=== PATIENT | female | born 1940 | race Caucasian/White ===

== ENCOUNTER 2020-07-24 13:20 | Emergency (ER) | payer MEDICARE, OTHER, SELFPAY ==
[2020-07-24 13:29] VITALS: BP 130/63; PULSE 79; RESP 20; TEMP 36.4; O2SAT 100
--- NOTE | 2020-07-24 13:43 | ED.FEMALEGU ---
HPI - Female Genitourinary General Chief complaint: Urogenital-Female Stated complaint: POS UTI/pos yeast Time Seen by Provider: 07/24/20 13:35 Source: patient and RN notes reviewed Mode of arrival: ambulatory Limitations: no limitations History of Present Illness HPI Narrative: 80-year-old female who presents to [facility] with 2 weeks history of suspected bladder and yeast infection. Patient states she is having a lot of pelvic discomfort especially when her bladder is full, burning with urination and some frequency with nocturia lately 4-6 times a night. Patient denies any chills, fevers, or sweats, denies any back pain or any CVA tenderness. Patient states that she drinks a lot of water daily usually 6 bottles daily, had previous bladder infection 6 months ago. Patient states that she took 5 days of Amoxicillin and used Monistat ointment when initially symptoms started with continued burning with urination and pelvic discomfort. MD elicited complaint: dysuria, UTI and pelvic pain Pertinent past history: diabetes and other (Previous UTI 6 months ago) Onset (ago): day(s) (5 days) Location of symptoms: suprapubic and pelvis (Lower pelvis) Severity: mild Female Urogenital Radiation: Suprapubic Severity scale (1-10): 2 Quality of pain: burning and aching Consistency: progressively worsening Vaginal discharge: none Vaginal bleeding: none Urinary symptoms: Dysuria, Frequency and Foul Smelling Urine Exacerbating factors: urination Relieving factors: other (sitting in recliner and putting her feet up) Associated symptoms: denies other symptoms Treatment prior to arrival: other (Used Monistat and 5 days of amoxicillin) Sexual activity: No Patient : No Possible : postmenopausal Related Data Allergies Allergy/AdvReac Type Severity Reaction Status Date / Time No Known Allergies Allergy Unverified 01/27/20 09:02 Review of Systems Review of Systems: Narrative: CONSTITUTIONAL: Denies fever, chills, or sweats. EYES: Denies visual changes, redness, or discharge. ENT: Denies rhinorrhea, congestion, sore throat, or otalgia. CARDIOVASCULAR: Denies chest pain, palpitations, or edema. RESPIRATORY: Denies cough or dyspnea. GASTROINTESTINAL: reports pelvic pain, denies any nausea, vomiting, or diarrhea. GENITOURINARY: positive dysuria no visible hematuria.denies any vaginal drainage or any perineal itching. SKIN: Denies rash or itching. MUSCULOSKELETAL: Denies back pain, joint pain, or myalgia. NEUROLOGIC: Denies headache, numbness, or weakness. PSYCHIATRIC: Denies anxiety or depression. All systems reviewed & are unremarkable except as noted in HPI and below PMFSH Past Medical History Medical History (Updated 07/24/20 @ 15:40 by Georgia Jackman NP) Arthritis DVT (deep venous thrombosis) Hearing loss Hyperlipemia Pancreatitis Spinal stenosis Type 2 diabetes mellitus without complication, without long-term current use of insulin UTI (urinary tract infection) Surgical History Surgical History (Updated 07/24/20 @ 15:39 by Georgia Jackman NP) H/O: hysterectomy History of section History of left knee replacement History of spinal surgery lumbar Hx of cholecystectomy Family History Family History (Updated 04/29/16 @ 23:19 by DOCTOR UNKNOWN) Mother Cerebrovascular accident Sibling Family history of diabetes mellitus in first degree relative Father Family history of emphysema Social History Social History (Updated 07/24/20 @ 15:37 by Georgia Jackman NP) Smoking status: Never smoker Alcohol intake: never Substance use: never Living arrangements: with family Occupation/Education: retired Gender identity (if verbalized by the patient): Female Comments At time of signature, agree with nursing past medical, surgical, social and family history. There is no relevant family history pertinent to the presenting complaint Exam Narrative: Exam Narrative: GENERAL: Well-appearing, w
== END 2020-07-24 14:05 | disposition home or self-care (01) ==
PROVIDERS: Emergency Provider Registered Nurse; PCP Internal Medicine
DX: N39.0 Urinary tract infection, site not specified (principal); M19.90 Unspecified osteoarthritis, unspecified site; Z86.718 Personal history of other venous thrombosis and embolism; E78.5 Hyperlipidemia, unspecified; E11.9 Type 2 diabetes mellitus without complications; Z79.4 Long term (current) use of insulin; M48.00 Spinal stenosis, site unspecified
CPT/HCPCS: 81003; 87077; 87086; 87088; 87186; 99213; G0463

== ENCOUNTER 2020-08-16 08:19 | Emergency (ER) | payer MEDICARE, OTHER, SELFPAY ==
--- NOTE | 2020-08-16 08:27 | ED.GENADULT ---
HPI - General Adult General Chief complaint: Back Pain/Injury Stated complaint: rt hip pain/lower back pain Time Seen by Provider: 08/16/20 08:27 Source: patient Mode of arrival: ambulatory Limitations: no limitations History of Present Illness HPI narrative: 80-year-old female patient presents to the [facility] with complaints of a low back pain for the past 3 days. Patient denies any injury. Denies any numbness or tingling down the legs. Denies any loss of bowel or bladder control. Patient states she has had back surgery in the past and has been told that she has arthritis in the back. Patient states that the flareup got really bad yesterday when it was raining. Patient states that she tried some [id number] Motrin and Aleve which did not help much however she did take some Tylenol and use some ice and heat to the back which did help tremendously. Patient states she took another dose of Tylenol today which has helped. Related Data Allergies Allergy/AdvReac Type Severity Reaction Status Date / Time No Known Allergies Allergy Unverified 07/27/20 09:04 Review of Systems Review of Systems: Narrative: CONSTITUTIONAL: Denies fever, chills, or sweats. EYES: Denies visual changes, redness, or discharge. ENT: Denies rhinorrhea, congestion, sore throat, or otalgia. CARDIOVASCULAR: Denies chest pain, palpitations, or edema. RESPIRATORY: Denies cough or dyspnea. GASTROINTESTINAL: Denies abdominal pain, nausea, vomiting, or diarrhea. GENITOURINARY: Denies dysuria or hematuria. SKIN: Denies rash or itching. MUSCULOSKELETAL: Positive low back pain, denies joint pain, or myalgia. NEUROLOGIC: Denies headache, numbness, or weakness. PSYCHIATRIC: Denies anxiety or depression. [facility] Past Medical History Medical History Arthritis DVT (deep venous thrombosis) Hearing loss Hyperlipemia Pancreatitis Spinal stenosis Type 2 diabetes mellitus without complication, without long-term current use of insulin UTI (urinary tract infection) Surgical History Surgical History H/O: hysterectomy History of section History of left knee replacement History of spinal surgery lumbar Hx of cholecystectomy Family History Family History Mother Cerebrovascular accident Sibling Family history of diabetes mellitus in first degree relative Father Family history of emphysema Social History Social History Smoking status: Never smoker Alcohol intake: never Substance use: never Gender identity (if verbalized by the patient): Female Comments At the time of my signature I agree with nursing past medical history, surgical, social, and family history. There is no relevant family history pertinent to the presenting complaint. Exam Narrative: Exam Narrative: GENERAL: Well-appearing, well-nourished, and in no acute distress. HEAD: Normocephalic, atraumatic. EYES: PERRLA and EOMI. ENT: Nares clear, no rhinorrhea or epistaxis. Mucous membranes moist. NECK: Supple. No lymphadenopathy CHEST: Clear to auscultation. No respiratory distress. HEART: Regular rate and rhythm. No murmur heard. Normal peripheral pulses. ABDOMEN: Soft, nontender, nondistended, normal active bowel sounds. EXTREMITIES: Normal range of motion. No edema. BACK: Patient is able to ambulated without assistance. Pt is seated on the chair in no obvouis distress. No surface trauma noted. muscle tenderness to Palpation to bilateral sides of the lumbar not including the midline.. No spasm or mass. No step-offs or deformity noted to the cervical, thoracic or lumbar spine to firm Palpation at the midline. No CVA tenderness to percussion. No saddle anesthesia. ROM: able to stand erect. Normal flexion, extension, Lateral bending without complaints of pain, does complain
[2020-08-16 08:31] VITALS: BP 137/71; PULSE 83; RESP 16; TEMP 36.3; O2SAT 100
== END 2020-08-16 08:47 | disposition home or self-care (01) ==
PROVIDERS: Emergency Provider Nurse Practitioner Family; PCP Internal Medicine
DX: M54.5 Low back pain (principal); M19.90 Unspecified osteoarthritis, unspecified site; Z86.718 Personal history of other venous thrombosis and embolism; E78.5 Hyperlipidemia, unspecified; E11.9 Type 2 diabetes mellitus without complications; Z79.4 Long term (current) use of insulin; M48.00 Spinal stenosis, site unspecified; Z96.652 Presence of left artificial knee joint
CPT/HCPCS: 99211; G0463

== ENCOUNTER 2020-09-01 11:22 | Outpatient (CLI) | payer MEDICARE, OTHER, SELFPAY ==
--- NOTE | ~2020-09-01 | XR_ITS ---
XR lumbar spine 6V w bending 09/01/2020 11:45 Indication: Radiculopathy. Procedure: 7 views lumbar spine including flexion/extension Comparison: 09/08/2011 Findings: Severe lumbar spondylosis characterized by disc narrowing, prominent ventral osteophytes an d advanced multilevel facet hypertrophy. There is grade 1 spondylolisthesis at L4-5. No significant a lteration of alignment with flexion/extension. Mild dextroscoliosis. Impression: 1: Severe lumbar spondylosis. Reviewed, dictated and finalized at location B. DENCE HALL DIRECTOR Impression: 1: Severe lumbar spondylosis.
== END 2020-09-01 11:23 | disposition home or self-care (01) ==
PROVIDERS: PCP Internal Medicine; Visit Provider Internal Medicine
DX: M47.26 Other spondylosis with radiculopathy, lumbar region (principal)
CPT/HCPCS: 72114

== ENCOUNTER 2021-03-03 16:53 | Emergency (ER) | payer MEDICARE, OTHER, SELFPAY ==
--- NOTE | ~2021-03-03 | XR_ITS ---
XR lumbar spine 2-3V DATE: 03/03/2021 17:33 INDICATION: Chronic low back pain TECHNIQUE: AP, lateral, coned lateral lumbosacral views COMPARISON: 09/01/2020 lumbar spine FINDINGS: There is mild dextroscoliosis. Diffuse osteopenia. There is degenerative disc disease throughout the lumbar spine, particularly prominent at L1-2, L2-3 and L5-S1, moderately prominent at L3-4 and L4-5. There is grade 1 anterolisthesis at L4-5, likely due to degenerative change at the apophyseal joints. No fracture or bone destruction is evident. The lumbar pedicles appear intact. The sacroiliac joints are intact. Status post cholecystectomy. IMPRESSION: Multilevel degenerative disc disease Grade 1 anterolisthesis at L4-5 due to degenerative change at the apophyseal joints Osteopenia Mild dextroscoliosis Reviewed, dictated and finalized at location A. IMPRESSION: Multilevel degenerative disc disease Grade 1 anterolisthesis at L4-5 due to degenerative change at the apophyseal cruz ints Osteopenia Mild dextroscoliosis
[2021-03-03 16:57] VITALS: BP 151/65; PULSE 71; RESP 15; TEMP 36.1; O2SAT 100
--- NOTE | 2021-03-03 17:23 | ED.BACK ---
HPI - Back Pain/Injury General Chief Complaint: Back Pain/Injury Stated Complaint: fall, back pain Time Seen by Provider: 03/03/21 17:00 Source: patient and RN notes reviewed Mode of arrival: ambulatory Limitations: no limitations History of Present Illness HPI Narrative: This is an 81 year old female with history of previous back surgery who presents for evaluation of low back pain. She developed low back pain this morning at 5 am. She states she noticed the pain when she got out of her car this morning. Her pain is worse with walking and movement . She has taken tylenol and aleve for her pain without relief. She denies abdominal pain, leg weakness, numbness, nausea, vomiting or fever. She denies history of aneurysm. She denies urinary retention or incontinence. Related Data Allergies Allergy/AdvReac Type Severity Reaction Status Date / Time No Known Allergies Allergy Verified 08/31/20 09:03 Review of Systems Review of Systems: All systems reviewed & are unremarkable except as noted in HPI and below PMFSH Past Medical History Medical History Arthritis DVT (deep venous thrombosis) Hearing loss Hyperlipemia Pancreatitis Spinal stenosis Type 2 diabetes mellitus without complication, without long-term current use of insulin UTI (urinary tract infection) Surgical History Surgical History H/O: hysterectomy History of section History of left knee replacement History of spinal surgery lumbar Hx of cholecystectomy Family History Family History Mother Cerebrovascular accident Sibling Family history of diabetes mellitus in first degree relative Father Family history of emphysema Social History Social History Smoking status: Never smoker Alcohol intake: never Substance use: never Gender identity (if verbalized by the patient): Female Exam Const: General: no acute distress and alert Orientation/consciousness: patient oriented x3 Eyes: EOM: EOMs intact bilaterally Resp: Effort & Inspection: normal respiratory effort and no retractions Auscultation: clear to auscultation bilaterally Cardio: Rate: regular rate Rhythm: regular rhythm Heart sounds: no murmurs GI: GI Palp: Yes Soft to palpation, No Tenderness to palpation present (GI) and No Guarding due to palpation present (GI) Auscultation: normal bowel sounds : General: Yes no CVA tenderness Back/Spine/Pelvis: Thoracic/Lumbar Spine: paraspinal muscle tenderness bilaterally Pelvis: no buttock ecchymosis, no buttock tenderness and no sciatic notch tenderness Skin: General skin exam: normal color Rashes: no rashes Neuro: General: patient oriented x3, moves all extremities and CN's II-XI intact bilaterally Extrem: General: normal to inspection Psych: Mental Status: mental status grossly normal Affect: normal affect Course Reevaluation(s) Reevaluation #1: Patient's pain has been improved. She was able to talk to bathroom. I have discussed with patient that she has UTI And she will be treated with antibiotics. Date: 03/03/21 Time: 19:48 Vital Signs Vital signs: Vital Signs Temperature 97.0 F L 03/03/21 16:57 Pulse Rate 71 03/03/21 16:57 Respiratory Rate 15 03/03/21 16:57 Blood Pressure 151/65 H 03/03/21 16:57 Pulse Oximetry 100 03/03/21 16:57 Temperature 97.0 F L 03/03/21 16:57 Pulse Rate 68 03/03/21 20:20 Respiratory Rate 16 03/03/21 20:20 Blood Pressure 133/64 03/03/21 20:20 Pulse Oximetry 99 03/03/21 20:20 MDM - Back Pain/Injury Medical Records Attestation: I reviewed the patient's medical records. Lab Data Attestation: I reviewed the patient's lab results. Result diagrams: 03/03/21 18:02 03/03/21 18:02 Labs: Lab Results
[2021-03-03] MEDS: HYDROmorphone HCL INJ (*CRX) 1 MG/ML SYR 0.5 MG IV PUSH ×2 (18:10→19:22)
[2021-03-03 18:11] LABS: Basophils Percent Auto 0.5 % (0.2-1.2); Eosinophils Absolute Auto 0.1 K/mm3 (0-0.3); Hematocrit 35.6 % (37.0-47.0); Hemoglobin 12.2 g/dL (12.0-15.0); Immature Granulocyte Absolute 0.03 K/mm3 (0.00-0.031); Immature Granulocyte Percent A 0.4 % (0-0.5); Lymphocytes Absolute Auto 1.92 K/mm3 (0.9-3.2); Lymphocytes Percent Auto 23.7 % (18.3-44.2); Mean Corpuscular HGB Conc 34.3 g/dl (32-36); Mean Corpuscular Hemoglobin 31.6 pg (26-34); Mean Corpuscular Volume 92.2 fl (80-100); Mean Platelet Volume 9.3 fl (7.4-10.4); Monocytes Absolute Auto 0.4 K/mm3 (0.1-0.6); Monocytes Percent Auto 5.4 % (2.6-8.5); Neutrophils Absolute Auto 5.6 K/mm3 (1.3-6.7); Platelet Count Result 249 k/mm3 (150-375); Red Blood Count 3.86 M/mm3 (4.2-5.4); Red Cell Distribution Width 11.7 % (11.5-14.5); White Blood Count 8.1 K/mm3 (4.5-10.0)
[2021-03-03] MEDS: ONDANSETRON INJ 4 MG/2 ML VIAL IV PUSH (18:11)
[2021-03-03 18:21] LABS: Anion Gap 8 mmol/L (8-16); Blood Urea Nitrogen 14 mg/dL (7-17); Calcium 9.6 mg/dL (8.4-10.2); Carbon Dioxide 29 mmol/L (22-30); Chloride 99 mmol/L (98-107); Estimated CRCL calculation 37 ml/min; Estimated Glomerular Filt Rate 53; Glucose 120 mg/dL (65-105); Potassium 4.5 mmol/L (3.4-5.0); Sodium 136 mmol/L (137-145)
--- NOTE | 2021-03-03 18:54 | PC.NURSE ---
patient reports that she is not able to give urine sample at this time due to not having much to drink today and not wanting to have any movement due to back pain with movement. At rest patient rates pain at 0/10. patient reports with any movement her pain goes up to 10/10. Patient declines straight cath.
[2021-03-03] MEDS: KETOROLAC 15 MG/ML VIAL (*BKC) IV PUSH (19:21)
[2021-03-03 19:25] LABS: Add Urine Microscopic? YES; Appearance Urine Cloudy (Clear); Bacteria Urine Trace /hpf; Bilirubin Urine Negative (Negative); Blood Urine Negative (Negative); Color Urine Yellow (Yellow); Glucose Urine UA Negative (Negative); Ketones Urine Negative (Negative); Leukocyte Esterase Ur 3+ LEU/UL (Negative); Mucus Urine Rare /lpf; Nitrate Urine Negative (Negative); Protein Urine 1+ mg/dL (Negative); Squamous Epithelial Cell Urine Rare /hpf (Few); Urobilinogen Urine Negative mg/dL (<2.0); WBC Urine >75 /hpf
[2021-03-03 20:20] VITALS: BP 133/64; PULSE 68; RESP 16; O2SAT 99
== END 2021-03-03 20:25 | disposition home or self-care (01) ==
PROVIDERS: Emergency Provider General Practice; PCP Internal Medicine
DX: N39.0 Urinary tract infection, site not specified (principal); S39.012A Strain of muscle, fascia and tendon of lower back, initial encounter; E78.5 Hyperlipidemia, unspecified; E11.9 Type 2 diabetes mellitus without complications; Z87.440 Personal history of urinary (tract) infections; Z86.718 Personal history of other venous thrombosis and embolism; Z96.652 Presence of left artificial knee joint; M85.88 Other specified disorders of bone density and structure, other site; M51.36 Other intervertebral disc degeneration, lumbar region; M51.37 Other intervertebral disc degeneration, lumbosacral region; X50.9XXA Other and unspecified overexertion or strenuous movements or postures, initial encounter; Z79.84 Long term (current) use of oral hypoglycemic drugs
CPT/HCPCS: 36415; 72100; 80048; 81001; 85025; 87077; 87086; 87088; 87186; 96365; 96375; 96376; 99284; J0696; J1170; J1885; J2405

== ENCOUNTER 2021-04-25 08:25 | Outpatient (CLI) | payer MEDICARE, OTHER, SELFPAY ==
--- NOTE | ~2021-04-25 | MR_ITS ---
EXAMINATION: [facility] EXAM DATE: 04/25/2021 09:38 INDICATION: Lumbar radiculopathy, low back pain, right hip pain. TECHNIQUE: Multi-sequential, multiplanar MR images of the lumbar spine were obtained without contrast . Sagittal T1, T2, T2 fat saturation images. Axial T2 weighted images. Comparison is made to prior examination from 11/04/2016. FINDINGS: There are laminotomies at L4 and L5. There is moderate loss of the L5-S1 disc height, mild to moderate at L1-2 and L3-4. There is 2-3 mm retrolisthesis L3 on L4 and L5 on S1, 2-3 mm anterolist hesis L4 on L5. The conus medullaris terminates at the T12-L1 level and has normal signal intensity a nd morphology. Mild lumbar dextroscoliosis. There are no suspicious marrow signal abnormalities. Several small left renal cysts. Level by level evaluation: T12-L1: Disc does not extend beyond the endplate margin. Facet arthropathy: None. Neural foraminal stenosis: No stenosis. Central canal stenosis: No stenosis. L1-L2: There is a minimal diffuse disc bulge. Facet arthropathy: Mild. Neural foraminal stenosis: No stenosis. Central canal stenosis: No stenosis. L2-L3: There is a minimal diffuse disc bulge. Facet arthropathy: Mild. Neural foraminal stenosis: No stenosis. Central canal stenosis: No stenosis. L3-L4: There is a moderate diffuse disc bulge. Facet arthropathy: Moderate to severe . Ligamentum flavum enlargement. Neural foraminal stenosis: Moderate bilateral. Central canal stenosis: Severe. L4-L5: There is a mild to moderate diffuse disc bulge. Facet arthropathy: Moderate. Neural foraminal stenosis: Moderate right, mild to moderate left. Central canal stenosis: Mild. Posterior decompression. L5-S1: There is a moderate diffuse disc bulge asymmetric to the right causing mass effect on traversi ng S1 nerve root. Facet arthropathy: Mild to moderate bilateral. Neural foraminal stenosis: Moderate bilateral, left greater than right. Central canal stenosis: Moderate right lateral recess narrowing. Posterior decompression. Significant progression in the central canal stenosis at the L3-4 level. IMPRESSION: 1. L3-4 grade 1 retrolisthesis, bulge and facet arthropathy causing severe central canal stenosis. 2. L5-S1 moderate right lateral recess stenosis. Less spondylosis other levels. Reviewed, dictated and finalized at location A. IMPRESSION: 1. L3-4 grade 1 retrolisthesis, bulge and facet arthropathy causing severe bernie tral canal stenosis. 2. L5-S1 moderate right lateral recess stenosis. Less spondylosis other levels .
== END 2021-04-25 08:26 | disposition home or self-care (01) ==
LOC: ANHIMG 08:26
PROVIDERS: PCP Internal Medicine; Visit Provider Nurse Practitioner
DX: M47.27 Other spondylosis with radiculopathy, lumbosacral region (principal); M48.07 Spinal stenosis, lumbosacral region
CPT/HCPCS: 72148

== ENCOUNTER 2023-07-14 09:38 | Emergency (ER) | payer MEDICARE, OTHER, SELFPAY ==
--- NOTE | ~2023-07-14 | CT_ITS ---
EXAMINATION: CT hip RT wo con DATE: 07/14/2023 13:04 INDICATION: Right hip pain. TECHNIQUE: Computed tomography (CT) of the right hip was performed without intravenous contrast. Auto mated exposure control and iterative reconstruction technique were employed. The dose-length product was 236.93 mGy-cm. COMPARISON: CT abdomen and pelvis 03/29/2019 FINDINGS: There is prominent fat in the right inguinal canal. Bone alignment is normal. No fracture. There is severe right hip osteoarthritis. Osteitis pubis is noted. IMPRESSION: 1. Severe right hip osteoarthritis. 2. Prominent fat in right inguinal canal that may be a hernia. Reviewed, dictated and finalized at location A.
[2023-07-14 10:14] VITALS: BP 145/72; PULSE 78; RESP 16; TEMP 36.6; O2SAT 100
--- NOTE | 2023-07-14 11:36 | PC.NURSE ---
EDP at bedside to assess pt.
--- NOTE | 2023-07-14 12:40 | ED.BACK ---
HPI - Back Pain/Injury General Chief Complaint: Back Pain/Injury Stated Complaint: sciatica Time Seen by Provider: 07/14/23 11:46 History of Present Illness HPI Narrative: 83-year-old female presented the emergency department for evaluation of right hip pain. Patient reports she is typically fairly active and goes swimming multiple times a week. Patient states over the course of the last 2 weeks has had worsening right hip pain that she describes as pain in the right buttock that does radiate down her leg. Patient states when she is at rest she has no pain but when she attempts to ambulate she has increased pain. Patient denies any falls or injuries. Patient reports he does have history of osteoarthritis in that hip and is following up with orthopedics and is anticipating a hip replacement at some point. Related Data Allergies Allergy/AdvReac Type Severity Reaction Status Date / Time No Known Allergies Allergy Verified 07/14/23 11:46 Review of Systems Review of Systems: All systems reviewed & are unremarkable except as noted in HPI and below PMFSH Past Medical History Medical History (Updated 07/14/23 @ 14:02 by Aravind Montes MD) Arthritis Arthritis Chronic kidney disease, stage 3a Diabetes mellitus DVT (deep venous thrombosis) Hearing loss Hyperlipemia Pancreatitis Spinal stenosis Type 2 diabetes mellitus without complication, without long-term current use of insulin UTI (urinary tract infection) Surgical History Surgical History H/O: hysterectomy History of section History of left knee replacement History of spinal surgery lumbar 07/2021 Hx of cholecystectomy Family History Family History Mother Cerebrovascular accident Sibling Family history of diabetes mellitus in first degree relative Father Family history of emphysema Social History Social History (Updated 05/09/23 @ 10:09 by Jane Flowers [facility]) Social History: lives with spouse in a single-story home 2 steps to enter Smoking status: Never smoker Second hand tobacco smoke exposure: No Alcohol intake: never Substance use: never Lack of Transportation: No Lack of Food: Never True Current Housing: I Have Housing Concerned About Future Housing: No Difficulty Paying Gas/Electric Bills: No Difficulty Paying for Meds: No Currently Unemployed: No Education: Decline to Answer Difficulty w/ Childcare or Family Care: No Living arrangements: with family Occupation/Education: retired Gender identity (if verbalized by the patient): Female Exam Narrative: APPEARANCE: Well appearing, no pain, no distress, well-nourished. HEAD: normocephalic, atraumatic. EYES: PERRLA/EOMI, conjunctivae clear. NOSE: Normal no drainage NECK: Supple. No adenopathy, no masses. RESPIRATORY: Airway patent, respirations nonlabored. Clear to auscultation bilaterally, no rales, rhonchi, wheezing. CARDIOVASCULAR: Regular rate and rhythm without murmurs rubs or gallops. ABDOMINAL: Soft, nontender, nondistended, normal bowel sounds MUSCULOSKELETAL: Reducible tenderness to right buttock NEURO: Alert. Cranial nerves II through XII intact. Good gait. Good coordination SKIN: No skin changes or area of tenderness PSYCHIATRIC: Normal affect/mood. Course Course Emergency Course: 81-year-old female present emergency department for evaluation of right hip pain consistent with sciatica. Patient did request a CT scan. Patient states she does have worsening osteoarthritis. CT scan showed no acute evidence of fracture or dislocation. Patient was provided Medrol Dosepak along with Flexeril and Starr for pain control. Patient has taken Starr for pain control previously and tolerates it well. Vital Signs Vital signs: Vital Signs Temperature 97.8 F 07/14/23 10:14 Pulse Rate 78 07/14/23 10:14 Respiratory Rate 16 10
[2023-07-14] MEDS: CYCLOBENZAPRINE HCL 10 MG TABLET PO (12:46)
[2023-07-14] MEDS: HYDROcodone/acetaminophen (*CRX) 5-325 MG TABLET 1 TAB PO (12:46)
== END 2023-07-14 14:31 | disposition home or self-care (01) ==
PROVIDERS: Emergency Provider Emergency Medicine; PCP Internal Medicine
DX: M54.31 Sciatica, right side (principal); M25.551 Pain in right hip; E11.22 Type 2 diabetes mellitus with diabetic chronic kidney disease; N18.31 Chronic kidney disease, stage 3a; E78.5 Hyperlipidemia, unspecified; M19.90 Unspecified osteoarthritis, unspecified site; Z96.652 Presence of left artificial knee joint; Z86.718 Personal history of other venous thrombosis and embolism; Z87.440 Personal history of urinary (tract) infections; Z90.710 Acquired absence of both cervix and uterus; Z90.49 Acquired absence of other specified parts of digestive tract; Z79.84 Long term (current) use of oral hypoglycemic drugs; M16.11 Unilateral primary osteoarthritis, right hip
CPT/HCPCS: 73700; 99284; A9270

== ENCOUNTER 2023-11-15 08:27 | Outpatient (CLI) | payer MEDICARE, OTHER, SELFPAY ==
[2023-11-15 12:14] LABS: Anion Gap 3 mmol/L (8-16); Blood Urea Nitrogen 28 mg/dL (7-17); Calcium 9.6 mg/dL (8.4-10.2); Carbon Dioxide 29 mmol/L (22-30); Chloride 104 mmol/L (98-107); Estimated Glomerular Filt Rate 60; Glucose 126 mg/dL (65-110); Potassium 4.9 mmol/L (3.4-5.0); Sodium 136 mmol/L (137-145)
== END 2023-11-15 08:28 | disposition home or self-care (01) ==
PROVIDERS: PCP Internal Medicine; Visit Provider Internal Medicine
DX: E87.5 Hyperkalemia (principal); E87.1 Hypo-osmolality and hyponatremia
CPT/HCPCS: 36415; 80048

== ENCOUNTER 2024-01-11 09:54 | Outpatient (CLI) | payer MEDICARE, OTHER, SELFPAY ==
[2024-01-11 11:21] LABS: Basophils Absolute Auto 0.1 K/mm3 (0.0-0.1); Basophils Percent Auto 0.9 % (0.2-1.2); Eosinophils Absolute Auto 0.2 K/mm3 (0-0.3); Eosinophils Percent Auto 3.2 % (0-4.4); Hematocrit 35.6 % (37.0-47.0); Hemoglobin 11.8 g/dL (12.0-15.0); Immature Granulocyte Absolute 0.01 K/mm3 (0.00-0.031); Immature Granulocyte Percent A 0.2 % (0-0.5); Lymphocytes Absolute Auto 2.48 K/mm3 (0.9-3.2); Lymphocytes Percent Auto 43.7 % (18.3-44.2); Mean Corpuscular HGB Conc 33.1 g/dl (32-36); Mean Corpuscular Hemoglobin 30.6 pg (26-34); Mean Corpuscular Volume 92.5 fl (80-100); Mean Platelet Volume 9.6 fl (7.4-10.4); Monocytes Absolute Auto 0.5 K/mm3 (0.1-0.6); Monocytes Percent Auto 8.6 % (2.6-8.5); Neutrophils Absolute Auto 2.5 K/mm3 (1.3-6.7); Neutrophils Percent Auto 43.4 % (45.5-73.1); Platelet Count Result 233 k/mm3 (150-375); Red Blood Count 3.85 M/mm3 (4.2-5.4); Red Cell Distribution Width 12.5 % (11.5-14.5); White Blood Count 5.7 K/mm3 (4.5-10.0)
[2024-01-11 11:29] LABS: Urine Cotinine NEGATIVE
[2024-01-11 11:31] LABS: Albumin Level 4.5 g/dL (3.5-5.1); Anion Gap 8 mmol/L (4-12); Blood Urea Nitrogen 20 mg/dL (7-17); Calcium 9.9 mg/dL (8.4-10.2); Carbon Dioxide 26 mmol/L (22-30); Chloride 102 mmol/L (98-107); Estimated Glomerular Filt Rate 60; Glucose 136 mg/dL (65-110); Potassium 4.5 mmol/L (3.4-5.0); Sodium 136 mmol/L (137-145)
[2024-01-11 11:38] LABS: INR 0.9; Prothrombin Time 12.8 Seconds (11.1-14.7)
== END 2024-01-11 09:55 | disposition home or self-care (01) ==
LOC: ANHSURGERY 09:58
PROVIDERS: Anesthesiology; PCP Internal Medicine; Visit Provider Orthopaedic Surgery
DX: M16.11 Unilateral primary osteoarthritis, right hip (principal); N18.31 Chronic kidney disease, stage 3a; Z01.818 Encounter for other preprocedural examination
CPT/HCPCS: 36415; 80048; 80307; 82040; 85025; 85610; 85730; 86850; 86900; 86901; 87081

== ENCOUNTER 2024-01-24 12:25 | Inpatient (IN) | payer MEDICARE, OTHER, SELFPAY ==
--- NOTE | 2024-01-11 10:06 | PC.NURSE ---
Report to the Outpatient Waiting Room, entrance under the green pavilion located off [facility], at time __6:00AM on date __01/23/24 . Planned Procedure Time: ___7:30AM . Time changes happen often and if your time is changed the preop area will call you the afternoon before. - You and your visitor will be asked to self-screen and do not enter if you have any COVID symptoms. - A mask is optional within the hospital at this time. Patients may have clear liquids (water, carbonated beverages, clear teas, apple juice) until 3 hours prior to surgery with a maximum of 20 ounces. - No food from midnight until time of surgery. Take the following medications with a SIP of water the morning of surgery: NONE DO NOT STOP ANY OF YOUR OTHER PRESCRIPTION MEDICATIONS PRIOR TO SURGERY ?EXCEPT THE FOLLOWING Medications to discontinue per physician ___HOLD ALEVE 7 DAYS PRE-OP- LAST DOSE 01/15/24. HOLD ALL VITAMINS/SUPPLEMENTS 3 DAYS PRE-OP PER ANESTHESIA- LAST DOSE 01/19/24. Please no make-up, nail khmer, hairspray, perfume, deodorant, or body powder the day of surgery. No jewelry (including any body piercings) or valuables the day of surgery, leave them at home. Please take a shower or bath the night before, or the morning of, surgery with an antibacterial soap. Wear comfortable, loose fitting clothing. - Jewelry must be removed prior to entering the operating room. Rings and piercings that are not removed may be cut off. - The hospital will not accept responsibility for valuables. - Please leave all valuables, including medications, at home the day of surgery. If you are going home after surgery, a licensed truck driver instructor must drive you home. - NO public transportation without another adult if you receive anesthesia. - We recommend that an adult stay with you for 24 hours following discharge. - We also recommend that you do not drive, make important decision, drink alcoholic beverages, or take any drugs that were not prescribed by your health care provider for at least 24 hours after your discharge time. Follow any additional instructions given to you from your surgeon. If you or anyone in your household have experienced Covid symptoms in the past week, please notify your surgeon or the nurse liaison at the phone number below for possible testing. Telephone instructions given to ___PATIENT and asked if any additional questions and then verbalized understanding. Patient advised to call surgeon office or pre surgery nurse liaison [phone] if any additional questions.
[2024-01-11 10:16] VITALS: BP 147/62; PULSE 69; RESP 16; TEMP 36.5; O2SAT 100; BMI 29.0
--- NOTE | 2024-01-22 16:23 | PM.IMHP ---
H&P: HPI History of Present Illness Date/Time: 01/22/24 16:23 Chief Complaint: Osteoarthritis right. Patient replacement. Narrative: Patient has longstanding rather severe osteoarthritis symptoms in the right hip. She takes Tylenol and Aleve every morning and her symptoms have worsened to the point that she no longer wishes to continue with non operative treatment of her hip arthritis pain. 6 weeks ago her pain was so severe that she went to the emergency room and had a CT scan of the left hip which shows the arthritis changes. She has been using a 4 prong cane time study clerk because of the pain. She is no longer able to walk in the pool. Her past history is significant for occasional rhythm problem and she was evaluated by Dr. Ricketts the steel spar operator who performed a stress test which was equivocal which led to cardiac catheterization which was felt to be without significant coronary artery disease and Dr. Ricketts cleared her to proceed with hip replacement on October 05. Past history is also significant for DVT behind the left knee 20 years ago, chronic kidney disease stage 3, chronic anemia. She has somewhat low blood pressure chronically. [facility] Past Medical History Medical History Arthritis Arthritis Chronic kidney disease, stage 3a Diabetes mellitus DVT (deep venous thrombosis) Hearing loss Hyperlipemia Pancreatitis Spinal stenosis Type 2 diabetes mellitus without complication, without long-term current use of insulin UTI (urinary tract infection) Surgical History Surgical History H/O: hysterectomy History of section History of left knee replacement History of spinal surgery lumbar 07/2021 Hx of cholecystectomy Family History Family History Mother Cerebrovascular accident Sibling Family history of diabetes mellitus in first degree relative Father Family history of emphysema Social History Social History (Updated 01/03/24 @ 07:55 by Liat Ortega CMA) Social History: lives with spouse in a single-story home 2 steps to enter Smoking status: Never smoker Second hand tobacco smoke exposure: No Alcohol intake: never Substance use: never Do You Feel Safe in your Home?: Yes Lack of Transportation: No Lack of Food: Never True Current Housing: I Have Housing Concerned About Future Housing: No Difficulty Paying Gas/Electric Bills: No Difficulty Paying for Meds: No Currently Unemployed: No Education: High School Diploma/GED Difficulty w/ Childcare or Family Care: No Living arrangements: with family Occupation/Education: retired Gender identity (if verbalized by the patient): Female Spiritual care concerns: No Meds Home Medications and Allergies Home Medications Medication Instructions Recorded Confirmed Type acetaminophen 650 mg 1,300 mg PO Q12H PRN Pain 01/11/24 01/11/24 History tablet,extended release atorvastatin 10 mg tablet 10 mg PO HS 01/11/24 01/11/24 History cyanocobalamin (vitamin B-12) 1,000 mcg PO DAILY 01/11/24 01/11/24 History 1,000 mcg tablet,extended release diphenhydramine HCl 25 mg capsule 25 mg PO DAILY PRN Allergy Symptoms 01/11/24 01/11/24 History (Benadryl) metformin 500 mg tablet 500 mg PO QAM 01/11/24 01/11/24 History multivitamin 1 tablet PO DAILY 01/11/24 01/11/24 History naproxen sodium 220 mg capsule 220 mg PO DAILY PRN Pain 01/11/24 01/11/24 History (Aleve) Allergies Allergy/AdvReac Type Severity Reaction Status Date / Time No Known Allergies Allergy Verified 01/11/24 10:10 Exam Extrem: Other: On examination she is a pleasant female in no acute distress. She is alert and oriented. She is 5 ft 3 in night 165 lb BMI of 29.2. She has flexion of the right hip from 5-90 degrees with point groin pain and lateral hi
[2024-01-23] VITALS (17 sets, daily range): BP systolic 107–141; BP diastolic 50–69; PULSE 78–104; RESP 12–22; TEMP 36.1–36.9; O2SAT 98–100
[2024-01-23] MEDS: LACTATED RINGERS 1,000 ML 30 ML IV CONT ×2 (06:30→12:08)
[2024-01-23] MEDS: VANCOMYCIN 1,000 MG/NS 250 ML BAG 250 MG IVPB (06:30)
[2024-01-23] MEDS: ACETAMINOPHEN 500 MG TABLET 1000 MG PO ×2 (06:45→17:45)
--- NOTE | 2024-01-23 06:59 | WPDANESEPPF ---
Anes - Initial Pre Proc Eval Procedure: Operation Date: 01/23/24 07:30 Proposed Procedures p Right Total Hip Arthroplasty, Direct Anterior Approach - Viral Lopez MD Date/Time: 01/23/24 06:59 Surgeon: Viral Lopez MD Pre Op Diagnosis: O A Right Hip Patient Data Age: 83 Gender: F Height: 1.6 m Weight: 74.3 kg Last Vital Signs Temp 97.7 F 01/11/24 10:16 Pulse 69 01/11/24 10:16 Resp 16 01/11/24 10:16 BP 147/62 H 01/11/24 10:16 Pulse Ox 100 01/11/24 10:16 O2 Del Method Room Air 01/11/24 10:16 Allergies Allergy/AdvReac Type Severity Reaction Status Date / Time No Known Allergies Allergy Verified 01/11/24 10:10 Home Medications Medication Instructions Recorded Confirmed Type acetaminophen 650 mg 1,300 mg PO Q12H PRN Pain 01/11/24 01/11/24 History tablet,extended release atorvastatin 10 mg tablet 10 mg PO HS 01/11/24 01/11/24 History cyanocobalamin (vitamin B-12) 1,000 mcg PO DAILY 01/11/24 01/11/24 History 1,000 mcg tablet,extended release diphenhydramine HCl 25 mg capsule 25 mg PO DAILY PRN Allergy Symptoms 01/11/24 01/11/24 History (Benadryl) metformin 500 mg tablet 500 mg PO QAM 01/11/24 01/11/24 History multivitamin 1 tablet PO DAILY 01/11/24 01/11/24 History naproxen sodium 220 mg capsule 220 mg PO DAILY PRN Pain 01/11/24 01/11/24 History (Aleve) Patient hx anesthesia problems: none Family hx anesthesia problems: none Results Review: All pre-operative results and documents have been reviewed as part of the pre-operative evaluation. [facility] Past Medical History Medical History Arthritis Arthritis Chronic kidney disease, stage 3a Diabetes mellitus DVT (deep venous thrombosis) Hearing loss Hyperlipemia Pancreatitis Spinal stenosis Type 2 diabetes mellitus without complication, without long-term current use of insulin UTI (urinary tract infection) Surgical History Surgical History H/O: hysterectomy History of section History of left knee replacement History of spinal surgery lumbar 07/2021 Hx of cholecystectomy Family History Family History Mother Cerebrovascular accident Sibling Family history of diabetes mellitus in first degree relative Father Family history of emphysema Social History Social History (Updated 01/03/24 @ 07:55 by Liat Ortega [facility]) Social History: lives with spouse in a single-story home 2 steps to enter Smoking status: Never smoker Second hand tobacco smoke exposure: No Alcohol intake: never Substance use: never Do You Feel Safe in your Home?: Yes Lack of Transportation: No Lack of Food: Never True Current Housing: I Have Housing Concerned About Future Housing: No Difficulty Paying Gas/Electric Bills: No Difficulty Paying for Meds: No Currently Unemployed: No Education: High School Diploma/GED Difficulty w/ Childcare or Family Care: No Living arrangements: with family Occupation/Education: retired Gender identity (if verbalized by the patient): Female Spiritual care concerns: No Anes - Eval Final PreProcedure Day of Procedure 01/23/24 06:59 Patient weight: normal Heart: regular rate and rhythm Lungs: clear to auscultation Airway: Mallampati scale and special considerations (Many chips on upper teeth. ) Neurological: alert and oriented Last oral intake: >/= 8 hours ASA classification: II Emergent: no Anesthetic plan: proceed Anesthesia type and monitoring: general ETT and standard monitoring Results Review: All pre-operative results and documents have been reviewed as part of the pre-operative evaluation. Pt reports cardiac cath 10/2023 at [facility], no CAD. Informed Consent: The patient's anesthetic plan and its attendant risks and benefits were discussed
[2024-01-23] MEDS: TRANEXAMIC ACID 1,000MG/ISO100 1,000 MG/100 ML BAG 200 MG IVPB (07:00)
[2024-01-23 07:14] LABS: Glucose Point of Care 146 mg/dl (65-105)
--- NOTE | 2024-01-23 07:30 | WPDHPUPDATE1 ---
History and Physical Update Update Date/Time: 01/23/24 07:30 History and Physical has been reviewed, including an updated exam of the patient. There are NO changes in the patient's condition. Risks, benefits, and alternatives have been discussed and questions answered. Patient agrees to proceed with procedure.
[2024-01-23] MEDS: ceFAZolin 2 GM/D5W 50 ML 2 GM/50 ML BAG IVPB (08:02)
[2024-01-23] MEDS: ceFAZolin SODIUM 1 GM VIAL 3 GM (08:30)
[2024-01-23] MEDS: SODIUM CHLORIDE 0.9% IV 37.7 ML, MORPHINE SULFATE INJ (*CRX) 2 MG, ROPivacaine HCL 1% 2... INFILTRATE (08:30)
[2024-01-23] MEDS: TRANEXAMIC ACID 1,000 MG/10 ML AMPUL 1000 MG IV PUSH (11:10)
[2024-01-23] MEDS: ceFAZolin SODIUM 1 GM VIAL 2 GM IV PUSH (11:11)
[2024-01-23] MEDS: fentaNYL CITRATE INJ (*CRX) 100 MCG/2 ML VIAL 25 MCG IV PUSH ×4 (12:23→14:15)
--- NOTE | 2024-01-23 12:24 | W.PM.PROC2 ---
Procedure Note - Detailed Date of Procedure 01/23/24 Pre-op Diagnosis O A Right Hip Post-op Diagnosis Same Procedure Performed Direct anterior approach right total hip arthroplasty Surgeon Viral Lopez MD Judge Joseline Baugh Anesthesia General Description of Procedure Patient was brought to the operating room and general anesthesia was administered. She received 2 g of Ancef weight based vancomycin 1 g of tranexamic acid preoperatively. Rojas catheter was placed. Padding was applied to the feet and boots applied [facility] hip prepped draped usual fashion. A 10 cm longitudinal incision was made starting 3 cm lateral to the ASIS. Dissection was carried down to the fascia of the tensor fascia taat which was longitudinally incised and elevated off the anterior aspect of the TFL muscle. Interval between TFL and rectus femoris developed an crossing branches of ascending lateral femoral circumflex vessels were ligated with suture divided. Retractor placed anteromedial capsule the hip abducted internally rotated and the gluteus minimus Peters carefully elevated off the lateral capsule. This was made a little bit more difficult by the ossification she had of her gluteus minimus tendon close to the tip of the greater trochanter anteriorly and with separation of this tendon from the lateral capsule and the proximal tip of the greater trochanter, that allowed us to debride this area of dystrophic calcification within the tendon from its deep side. There is no defect in the tendon. Inverted T capsulotomy was performed. Femoral neck osteotomy made according to preoperative templating. There was large peripheral osteophyte around the femoral head as well as her on the acetabulum with her short neck length this made exposure more difficult. We did note that there was fracture of the posterior superior osteophyte and we removed the fragment which gave us a little bit more working room. We removed the osteophytes rimming the femoral head which reduced the size of the femoral head and its periphery and this allowed to be extracted. The residual labral tissue was excised. A portion of the inferior acetabular osteophyte was also removed. The femur was externally rotated extended and completion of the lateral capsule released from the greater trochanter was carried out and we incised the interval between the piriformis tendon and conjoined tendon which allowed conjoined tendon to recess a little bit. Leg was brought back up to horizontal and the acetabulum was exposed. We medialized with a 44 Reamer to the medial wall and gradually reamed up to a 47 Reamer and carefully placed the 48 Reamer the direction of the cup which was just fully seated. We could not fully seat the 48 trial. I could see that there was a sclerotic ridge of bone in the inferior acetabulum and this was rounded off the large curette and this allowed the 48 trial to seat snugly and we chose the 48 pinnacle shell which was fully seated with excellent press fit single screw placed in the ilium which also achieved excellent purchase. The shell was placed at 40? of abduction and anteversion matching her anatomy. Bone quality seemed very good. The 32 inner diameter neutral polyethylene liner was fully seated. Leg was externally rotated extended with the table hook exposing the femur we broached up to a size 5 which still had torsional play and the size 6 Actis broach sit snugly. We trialed with the standard offset 1.5 head which is what we had templated to. She had a very short neck on this side preoperatively. The hip was tight on attempts at reduction and x-rays show we were still a few mm proud. The broach was countersunk additional 4 mm and we read trialed and this time we had appropriate soft tissue tension with Shuck and appropriate stability and the AP pelvis x-ray under fluoro showed equal leg lengths. This construct restored her preoperative length an
[2024-01-23 12:49] LABS: Glucose Point of Care 263 mg/dl (65-105)
[2024-01-23] MEDS: INSULIN HUMAN REGULAR (*BKC) 100 UNITS/ML 6 UNITS SUB-Q (12:57)
[2024-01-23] MEDS: ONDANSETRON INJ 4 MG/2 ML VIAL IV PUSH (13:45)
--- NOTE | 2024-01-23 15:54 | PM.IMCN ---
Assessment and Plan Assessment and plan (1) Osteoarthritis of right hip: Qualifiers: Osteoarthritis type: primary Qualified Code(s): M16.11 - Unilateral primary osteoarthritis, right hip Code(s): M16.11 - Unilateral primary osteoarthritis, right hip Status: Acute (2) Chronic kidney disease, stage 3a: Code(s): N18.31 - Chronic kidney disease, stage 3a Status: Acute (3) Type 2 diabetes mellitus without complication, without long-term current use of insulin: Code(s): E11.9 - Type 2 diabetes mellitus without complications Status: Acute Plan Mae Stout is a 83 year old female with PMH [id number] diabetes mellitus, CKD stage IIIA, hyperlipidemia, osteoarthritis, abnormal nuclear stress test/cardiac catheterization with no significant CAD (10/2023) is postop day 0 for elective right total hip arthroplasty via direct anterior approach. Hospitalist team has been consulted for medical management. Evaluating the patient just postop, reports 0/10 pain when immobile, 5/10 pain when mobilizing. She otherwise feels good and has no complaints. She mentions she ate 2 cup cakes yesterday since her birthday is coming up and her sugars may be elevated. --- Patient is doing well postop. Continue to cycle serum creatinine. Discontinue metformin in the perioperative setting as it can cause acidosis. Added low-dose insulin sliding scale with hypoglycemia protocol and Accu-Cheks a.c. HS. Discontinue Benadryl as it is a high risk medication an elderly female and she is also receiving narcotics. Use narcotics judiciously. FEN: Normal saline infusion. Heart healthy diabetic diet GI prophylaxis: DVT prophylaxis: Eliquis Lines: Peripheral IV Code Status: Full code Dispo: Stable. HPI Date of Consult Consult date: 01/23/24 Requesting Physician: Viral Lopez MD Primary Care Provider: Francisco J Bustillos DO Consult Narrative Reason for consult: Medical management Narrative: Mae Stout is a 83 year old female with PMH [id number] diabetes mellitus, CKD stage IIIA, hyperlipidemia, osteoarthritis, abnormal nuclear stress test/cardiac catheterization with no significant CAD (10/2023) is postop day 0 for elective right total hip arthroplasty via direct anterior approach. Hospitalist team has been consulted for medical management. Evaluating the patient just postop, reports 0/10 pain when immobile, 5/10 pain when mobilizing. She otherwise feels good and has no complaints. She mentions she ate 2 cup cakes yesterday since her birthday is coming up and her sugars may be elevated. Review of Systems Review of Systems: All systems reviewed & are unremarkable except as noted in HPI and below (Subjective) [facility] Past Medical History Medical History (Updated 01/23/24 @ 16:00 by Greer Mott MD) Arthritis Arthritis Chronic kidney disease, stage 3a Diabetes mellitus DVT (deep venous thrombosis) Hearing loss Hyperlipemia Pancreatitis Spinal stenosis Type 2 diabetes mellitus without complication, without long-term current use of insulin UTI (urinary tract infection) Surgical History Surgical History H/O: hysterectomy History of section History of left knee replacement History of spinal surgery lumbar 07/2021 Hx of cholecystectomy Family History Family History Mother Cerebrovascular accident Sibling Family history of diabetes mellitus in first degree relative Father Family history of emphysema Social History Social History (Updated 01/03/24 @ 07:55 by Liat Ortega CMA) Social History: lives with spouse in a single-story home 2 steps to enter Smoking status: Never smoker Second hand tobacco smoke exposure: No Alcohol intake: never Substance use: never Do You Feel Safe in your Home?: Yes Lack
[2024-01-23 16:39] LABS: Glucose Point of Care 227 mg/dl (65-105)
[2024-01-23] MEDS: SENNA/DOCUSATE SODIUM TABLET 2 TAB PO (17:44)
[2024-01-23 17:45] LABS: Hematocrit 30.9 % (37.0-47.0); Hemoglobin 10.1 g/dL (12.0-15.0); Mean Corpuscular HGB Conc 32.7 g/dl (32-36); Mean Corpuscular Hemoglobin 30.6 pg (26-34); Mean Corpuscular Volume 93.6 fl (80-100); Mean Platelet Volume 9.4 fl (7.4-10.4); Platelet Count Result 202 k/mm3 (150-375); Red Cell Distribution Width 12.7 % (11.5-14.5); White Blood Count 12.5 K/mm3 (4.5-10.0)
[2024-01-23] MEDS: SODIUM CHLORIDE 0.9% IV 1,000 ML 125 ML IV CONT (17:45)
[2024-01-23] MEDS: oxyCODONE HCL (*CRX) 2.5 MG TAB IR PO ×2 (17:45→20:28)
[2024-01-23] MEDS: ceFAZolin 1 GM/NS 50 ML 1 GM/50 ML BAG IVPB (17:46)
[2024-01-23] MEDS: VANCOMYCIN 750 MG/NS 250 ML 750 MG/250 ML BAG 250 MG IVPB (17:47)
[2024-01-23] MEDS: INSULIN ASPART (*BKC) 100 UNITS/ML SUB-Q ×2 (17:48→20:31)
[2024-01-23 20:28] LABS: Glucose Point of Care 260 mg/dl (65-105)
[2024-01-23] MEDS: ATORVASTATIN 10 MG TABLET PO (20:28)
[2024-01-24] VITALS: BP 130/55; PULSE 87; PULSE 92; RESP 18; TEMP 36.3; O2SAT 99
--- NOTE | ~2024-01-24 | XR_ITS ---
EXAMINATION: XR surgery orthopedic DATE: 01/23/2024 11:40 INDICATION: Anterior approach right hip arthroplasty TECHNIQUE: 2 fluoroscopic images of the right hip were obtained during procedure performed by Dr. Patricai pak. Radiologist was not present for the imaging or procedure. The amount of fluoroscopy time used d uring this procedure was 0.8 minutes. COMPARISON: None. FINDINGS: Initial image demonstrates resection of the right femoral head and placement of an acetabular compone nt for a right total hip arthroplasty. The femoral component has been placed on the subsequent image. Alignment appears near-anatomic. No fractures identified. Expected lucent gas in the soft tissues at the operative bed. IMPRESSION: 1. Expected appearance during right total hip arthroplasty. See procedure note for further detail. Reviewed, dictated and finalized at location A.
--- NOTE | ~2024-01-24 | XR_ITS ---
EXAMINATION: XR hip RT 1V w AP pelvis DATE: 01/23/2024 12:24 INDICATION: Status post anterior approach right total hip arthroplasty. TECHNIQUE: Anteroposterior view of the pelvis and cross-table lateral views of the right hip were obt ained. COMPARISON: None. FINDINGS: Interval placement of a noncemented right total hip arthroplasty which appears well seated in near-an atomic alignment. The acetabular component is affixed with at least a single screw. No fracture. Mild to moderate osteoarthritis at the left hip and bilateral sacroiliac joints. Surgical drain and expec flaca small amount of soft tissue gas at the operative bed overlying the right greater trochanter. IMPRESSION: 1. Expected appearance post right total hip arthroplasty. Reviewed, dictated and finalized at location A.
[2024-01-24] MEDS: ceFAZolin 1 GM/NS 50 ML 1 GM/50 ML BAG IVPB ×2 (00:21→09:35)
[2024-01-24] MEDS: oxyCODONE HCL (*CRX) 2.5 MG TAB IR PO ×6 (00:21→21:20)
[2024-01-24] MEDS: ACETAMINOPHEN 500 MG TABLET 1000 MG PO ×4 (00:21→16:47)
[2024-01-24 04:00] VITALS: BP 139/52; PULSE 79; PULSE 83; RESP 16; TEMP 36.4; O2SAT 99
[2024-01-24] MEDS: VANCOMYCIN 750 MG/NS 250 ML 750 MG/250 ML BAG 250 MG IVPB (05:28)
[2024-01-24 06:28] LABS: Basophils Percent Auto 0.3 % (0.2-1.2); Eosinophils Percent Auto 0.1 % (0-4.4); Hematocrit 27.4 % (37.0-47.0); Hemoglobin 8.9 g/dL (12.0-15.0); Immature Granulocyte Absolute 0.04 K/mm3 (0.00-0.031); Immature Granulocyte Percent A 0.4 % (0-0.5); Lymphocytes Absolute Auto 2.33 K/mm3 (0.9-3.2); Lymphocytes Percent Auto 21.3 % (18.3-44.2); Mean Corpuscular HGB Conc 32.5 g/dl (32-36); Mean Corpuscular Hemoglobin 30.7 pg (26-34); Mean Corpuscular Volume 94.5 fl (80-100); Mean Platelet Volume 9.5 fl (7.4-10.4); Monocytes Absolute Auto 1.1 K/mm3 (0.1-0.6); Monocytes Percent Auto 10.4 % (2.6-8.5); Neutrophils Absolute Auto 7.4 K/mm3 (1.3-6.7); Neutrophils Percent Auto 67.5 % (45.5-73.1); Platelet Count Result 193 k/mm3 (150-375); Red Cell Distribution Width 12.8 % (11.5-14.5)
[2024-01-24 06:37] LABS: Anion Gap 5 mmol/L (4-12); Blood Urea Nitrogen 10 mg/dL (7-17); Carbon Dioxide 23 mmol/L (22-30); Chloride 109 mmol/L (98-107); Estimated CRCL calculation 51 ml/min; Estimated Glomerular Filt Rate > 60; Glucose 148 mg/dL (65-110); Potassium 4.7 mmol/L (3.4-5.0); Sodium 137 mmol/L (137-145)
[2024-01-24 07:57] LABS: Glucose Point of Care 131 mg/dl (65-105)
--- NOTE | 2024-01-24 08:06 | WPDANESPN ---
Anes - Prog Note Post-Op Date/Time: 01/24/24 08:06 Cardiovascular status: normal Respiratory status: normal Airway patency: baseline Mental status: baseline Post-Op hydration status: normal Vital Signs: Last Vital Signs Temp 36.4 C 01/24/24 04:00 Pulse 83 01/24/24 04:00 Resp 16 01/24/24 04:00 BP 139/52 L 01/24/24 04:00 Pulse Ox 99 01/24/24 04:00 O2 Del Method Room Air 01/23/24 14:41 O2 Flow Rate 8 01/23/24 12:35 Pain Score (VAS): 0 I/O: Intake & Output 01/23/24 01/24/24 01/24/24 23:59 07:59 15:59 Intake Total 300 1800 Output Total 20 0 Balance 280 -260 Laboratory Tests 01/24/24 06:15 01/24/24 06:15 01/23/24 01/23/24 01/23/24 12:44 16:35 17:39 WBC 12.5 H RBC 3.30 L Hgb 10.1 L Hct 30.9 L MCV 93.6 MCH 30.6 MCHC 32.7 RDW 12.7 Plt Count 202 MPV 9.4 Immature Gran % (Auto) Neut % (Auto) Lymph % (Auto) Bonner % (Auto) Eos % (Auto) Baso % (Auto) Lymph # (Auto) Bonner # (Auto) Eos # (Auto) Baso # (Auto) Abs Immat Gran (auto) Absolute Neuts (auto) Absolute Nucleated RBC Nucleated RBC % Sodium Potassium Chloride Carbon Dioxide Anion Gap BUN Creatinine Estim Creat Clear Calc Estimated GFR Glucose POC Capillary Glucose 263 H 227 H Calcium 01/23/24 01/24/24 01/24/24 19:40 06:15 07:18 WBC 11.0 H RBC 2.90 L Hgb 8.9 L Hct 27.4 L MCV 94.5 MCH 30.7 MCHC 32.5 RDW 12.8 Plt Count 193 MPV 9.5 Immature Gran % (Auto) 0.4 Neut % (Auto) 67.5 Lymph % (Auto) 21.3 Bonner % (Auto) 10.4 H Eos % (Auto) 0.1 Baso % (Auto) 0.3 Lymph # (Auto) 2.33 Bonner # (Auto) 1.1 H Eos # (Auto) 0.0 Baso # (Auto) 0.0 Abs Immat Gran (auto) 0.04 H Absolute Neuts (auto) 7.4 H Absolute Nucleated RBC 0.000 Nucleated RBC % 0.0 Sodium 137 Potassium 4.7 Chloride 109 H Carbon Dioxide 23 Anion Gap 5 BUN 10 D Creatinine 0.70 Estim Creat Clear Calc 51 Estimated GFR > 60 Glucose 148 H POC Capillary Glucose 260 H 131 H Calcium 9.0 Post-procedural complaints: none Patient Feedback: Patient satisfied with anesthetic care.
[2024-01-24 09:23] VITALS: BP 141/57; PULSE 88; RESP 18; TEMP 36.7; O2SAT 98
[2024-01-24] MEDS: SENNA/DOCUSATE SODIUM TABLET 2 TAB PO ×2 (09:35→16:47)
[2024-01-24] MEDS: CELECOXIB 100 MG CAPSULE PO (09:35)
[2024-01-24] MEDS: CYANOCOBALAMIN 1,000 MCG TABLET 1000 MCG PO (09:35)
[2024-01-24] MEDS: APIXABAN 2.5 MG TABLET PO ×2 (09:35→21:20)
[2024-01-24] MEDS: polyethylene glycoL 3350 17 GM POWD.PACK PO (09:36)
[2024-01-24] MEDS: MULTIVITAMINS THERAPEUTIC TAB (*BKC) 1 TABLET PO (09:36)
[2024-01-24 11:36] LABS: Iron 44 ug/dL (37-170)
[2024-01-24 11:38] LABS: Glucose Point of Care 210 mg/dl (65-105)
[2024-01-24 11:46] LABS: Percent Iron Saturation 17 % (20-50)
[2024-01-24] MEDS: CEFDINIR 300 MG CAPSULE PO ×2 (12:02→21:20)
[2024-01-24] MEDS: INSULIN ASPART (*BKC) 100 UNITS/ML SUB-Q ×2 (12:26→16:50)
[2024-01-24 12:43] LABS: Folic Acid 18.2 ng/mL (2.76->20)
[2024-01-24 13:10] VITALS: BP 114/48; PULSE 96; RESP 20; TEMP 36.6; O2SAT 100
--- NOTE | 2024-01-24 14:16 | PM.PNORT ---
Progress Note: A&P Assessment and Plan (1) Status post total hip replacement, right: Code(s): Z96.641 - Presence of right artificial hip joint Status: Acute Assessment and Plan: patient is postop day 1 after right total hip replacement. I saw her at 7:30 a.m. this morning and she had gone through physical therapy yet. She went through physical therapy around 11:00 a.m. today and felt unsteady with independent transfers and ambulation and climbing the steps. We will keep her for another day until she is more stable. Her wound looks very good. She had no swelling in the leg she had intact sensation motor function in the right leg. She is alert and oriented. Her laboratory studies today show hemoglobin of 8.9, moderate acute blood loss anemia. Her preop hemoglobin was 11.8 1 week before surgery and 10.9 2 months before surgery. Platelets 360021. Her BUN this morning is 10 in her creatinine is 0.7. Her preop creatinine was 0.9 and preop BUN was 20 so it would appear that she is optimally hydrated at this time. vital signs have been stable. We will plan to formally admit her and work with her physical therapy tomorrow morning. We will check CBC in the morning. Her glucoses are under better control today. Yesterday afternoon she had capillary glucose of 266 and 270. Today at 11:30 a.m. was 210. Morning glucose was 148 on the BMP this morning at 6:15 a.m.. Subjective Subjective Date/Time Seen: 01/24/24 14:16 Objective Data Vital Signs Vital Signs: Vital Signs - 24 hr 01/23/24 14:41 01/23/24 14:50 01/23/24 15:05 Temperature 36.1 C L 36.6 C Pulse Rate 86 85 Respiratory Rate 20 18 Blood Pressure 137/60 133/61 Pulse Oximetry 100 100 Oxygen Delivery Room Air 01/23/24 15:35 01/23/24 16:35 01/23/24 16:00 Temperature 36.5 C 36.6 C Pulse Rate 82 93 104 H Respiratory Rate 20 22 H Blood Pressure 138/69 133/66 Pulse Oximetry 100 100 Oxygen Delivery 01/23/24 20:00 01/23/24 20:00 01/24/24 00:00 Temperature 36.9 C 36.3 C L Pulse Rate 98 99 92 Respiratory Rate 16 18 Blood Pressure 117/50 L 130/55 L Pulse Oximetry 100 99 Oxygen Delivery 01/24/24 00:00 01/24/24 04:00 01/24/24 04:00 Temperature 36.4 C Pulse Rate 87 79 83 Respiratory Rate 16 Blood Pressure 139/52 L Pulse Oximetry 99 Oxygen Delivery 01/24/24 09:23 01/24/24 13:10 Temperature 36.7 C 36.6 C Pulse Rate 88 96 Respiratory Rate 18 20 Blood Pressure 141/57 H 114/48 L Pulse Oximetry 98 100 Oxygen Delivery Intake/Output Intake/Output: Intake & Output 01/21/24 01/22/24 01/23/24 01/24/24 23:59 23:59 23:59 23:59 Intake Total 1600 2516 Output Total 20 2660 Balance 1580 -144 Meds/Results Medications: Active Medications Generic Name Dose Route Start Last Admin Trade Name Freq PRN Reason Stop Dose Admin Acetaminophen 1,000 mg 01/23/24 12:00 01/24/24 12:02 Acetaminophen 500 Mg Tablet PO 1,000 mg Q6H KAMILLA Administration Apixaban 2.5 mg 01/24/24 09:00 01/24/24 09:35 Apixaban 2.5 Mg Tablet PO 2.5 mg Q12HR KAMILLA Administration Atorvastatin Calcium 10 mg 01/23/24 21:00 01/23/24 20:28 Atorvastatin 10 Mg Tablet PO 10 mg HS KAMILLA Administration Cefdinir 300 mg 01/24/24 14:00 01/24/24 12:02 Cefdinir 300 Mg Capsule PO 300 mg Q12HR KAMILLA Administration Celecoxib 100 mg 01/24/24 08:00 01/24/24 09:35 Celecoxib 100 Mg Capsule PO 100 mg DAILY@0800 KAMILLA Administration Cyanocobalamin 1,000 mcg 01/24/24 09:00 01/24/24 09:35 Cyanocobalamin 1,000 Mcg Tablet PO 1,000 mcg DAILY KAMILLA Administration Dextrose 12.5 gm 01/23/24 14:20 Dextrose 50% 25 Gm/50 Ml Syringe IV PUSH PRN PRN Hypoglycemia Protocol Dextrose 12.5 gm 01/23/24 15:57 Dextrose 50% 25 Gm/50 Ml Syringe IV PUSH PRN PRN Hypoglycemia Protocol Fentanyl Citrate 25 mcg 01/22/24 14:05 01/23/24 14:15 Fentanyl Citrate I
[2024-01-24 15:10] LABS: Hematocrit 25.9 % (37.0-47.0); Hemoglobin 8.5 g/dL (12.0-15.0)
--- NOTE | 2024-01-24 15:43 | PM.IMPN ---
Progress Note: A&P Assessment and Plan (1) Osteoarthritis of right hip: Qualifiers: Osteoarthritis type: primary Qualified Code(s): M16.11 - Unilateral primary osteoarthritis, right hip Code(s): M16.11 - Unilateral primary osteoarthritis, right hip Status: Acute Assessment and Plan: management per primary service, PT/OT on board. (2) Chronic kidney disease, stage 3a: Code(s): N18.31 - Chronic kidney disease, stage 3a Status: Acute Assessment and Plan: GFR greater than 60 creatinine 0.7 on morning labs, stop IV hydration (3) Type 2 diabetes mellitus without complication, without long-term current use of insulin: Code(s): E11.9 - Type 2 diabetes mellitus without complications Status: Acute Assessment and Plan: Blood sugar 131-255, continue fingerstick glucose and sliding scale insulin (4) Iron deficiency anemia: Code(s): D50.9 - Iron deficiency anemia, unspecified Status: Acute Assessment and Plan: Postoperative hemoglobin drop with known blood loss during surgery. Patient does not require transfusion at this time. Will continue to monitor CBC again tomorrow. Initiate IV iron as her% saturation is low and she is not compliant with her home iron supplements. B12 and folate are okay. Patient takes supplemental B12 daily. Plan FEN: diabetic diet, discontinue saline infusion GI prophylaxis: DVT prophylaxis: Eliquis per Orthopedics Lines: Peripheral IV Code Status: Full code Dispo: Remain in hospital overnight, recheck CBC in the morning, 2nd iron transfusion tomorrow and possible discharge per primary service. Time Spent With Patient Time with patient: Greater than 35 minutes Subjective Date/time seen: 01/24/24 15:43 Interval history: Patient underwent left hip replacement with some blood loss in the OR auto transfuse with Cell Saver a portion of blood loss. Hemoglobin dropped to 8.5 today. Patient otherwise doing well postoperative. Blood sugars are well controlled. We are medical consult for primary surgical patient. Patient will remain in the hospital overnight and recheck CBC in the morning. Iron studies show low saturation, IV iron ordered. Review of Systems Review of Systems: All systems reviewed & are unremarkable except as noted in HPI and below Exam Const: General: comfortable and no acute distress Eyes: Pupils: Equal, round and reactive pupils present Neck: Neck: supple Resp: Effort & Inspection: normal respiratory effort Auscultation: clear to auscultation bilaterally Cardio: Rate: regular rate Rhythm: regular rhythm GI: GI Palp: Yes Soft to palpation and No Tenderness to palpation present (GI) Extrem: General: no edema Other: Lower extremities bilaterally neurovascularly intact Surgical site dressing clean dry intact Objective Data Vital Signs Vital Signs: Vital Signs - 24 hr 01/23/24 16:35 01/23/24 16:00 01/23/24 20:00 Temperature 36.6 C 36.9 C Pulse Rate 93 104 H 98 Respiratory Rate 22 H 16 Blood Pressure 133/66 117/50 L Pulse Oximetry 100 100 Oxygen Delivery 01/23/24 20:00 01/24/24 00:00 01/24/24 00:00 Temperature 36.3 C L Pulse Rate 99 92 87 Respiratory Rate 18 Blood Pressure 130/55 L Pulse Oximetry 99 Oxygen Delivery 01/24/24 04:00 01/24/24 04:00 01/24/24 09:23 Temperature 36.4 C 36.7 C Pulse Rate 79 83 88 Respiratory Rate 16 18 Blood Pressure 139/52 L 141/57 H Pulse Oximetry 99 98 Oxygen Delivery 01/24/24 13:10 01/24/24 08:00 Temperature 36.6 C Pulse Rate 96 Respiratory Rate 20 Blood Pressure 114/48 L Pulse Oximetry 100 Oxygen Delivery Room Air Intake/Output Intake/Output: Intake & Output 01/21/24 01/22/24 01/23/24 01/24/24 23:59 23:59 23:59 23:59 Intake Total 1600 2516 Output Total 20 8820 Balance 1580 -144 Meds/Results Medications: Active Medications Generic Name Dose Route Start Last A
[2024-01-24 16:41] LABS: Glucose Point of Care 255 mg/dl (65-105)
[2024-01-24] MEDS: IRON SUCROSE COMPLEX 500 MG in SODIUM CHLORIDE 0.9% IV 250 ML 79 MG IVPB (16:46)
[2024-01-24] MEDS: ATORVASTATIN 10 MG TABLET PO (21:20)
[2024-01-24 21:58] LABS: Glucose Point of Care 134 mg/dl (65-105)
[2024-01-24 22:08] VITALS: BP 115/54; PULSE 82; RESP 18; TEMP 36.7; O2SAT 100
[2024-01-25] MEDS: ACETAMINOPHEN 500 MG TABLET 1000 MG PO ×3 (00:15→12:40)
[2024-01-25] MEDS: oxyCODONE HCL (*CRX) 2.5 MG TAB IR PO ×4 (00:15→12:40)
[2024-01-25 06:00] VITALS: BP 125/51; PULSE 105; RESP 18; TEMP 36.3; O2SAT 97
[2024-01-25 06:16] LABS: Hematocrit 25.4 % (37.0-47.0); Hemoglobin 8.3 g/dL (12.0-15.0); Mean Corpuscular HGB Conc 32.7 g/dl (32-36); Mean Corpuscular Hemoglobin 31.1 pg (26-34); Mean Corpuscular Volume 95.1 fl (80-100); Mean Platelet Volume 10.1 fl (7.4-10.4); Platelet Count Result 197 k/mm3 (150-375); Red Blood Count 2.67 M/mm3 (4.2-5.4); Red Cell Distribution Width 13.3 % (11.5-14.5); White Blood Count 9.5 K/mm3 (4.5-10.0)
[2024-01-25 08:22] LABS: Glucose Point of Care 174 mg/dl (65-105)
[2024-01-25] MEDS: SENNA/DOCUSATE SODIUM TABLET 2 TAB PO (08:34)
[2024-01-25] MEDS: CELECOXIB 100 MG CAPSULE PO (08:34)
[2024-01-25] MEDS: CEFDINIR 300 MG CAPSULE PO (08:34)
[2024-01-25] MEDS: polyethylene glycoL 3350 17 GM POWD.PACK PO (08:34)
[2024-01-25] MEDS: APIXABAN 2.5 MG TABLET PO (08:34)
[2024-01-25] MEDS: MULTIVITAMINS THERAPEUTIC TAB (*BKC) 1 TABLET PO (08:34)
[2024-01-25] MEDS: CYANOCOBALAMIN 1,000 MCG TABLET 1000 MCG PO (08:34)
[2024-01-25] MEDS: IRON SUCROSE COMPLEX 500 MG in SODIUM CHLORIDE 0.9% IV 250 ML 79 MG IVPB (08:38)
--- NOTE | 2024-01-25 11:13 | PM.DS ---
DS: Admitting Diagnosis Discharge Date 01/25/2024 Admitting Diagnosis Osteoarthritis right hip DS: Discharge Diagnosis Discharge Diagnosis Plan Status post right total hip arthroplasty for osteoarthritis right hip DS: Summary Hospital Course Hospital Course: Patient did well after surgery. She did feel unsteady with gait and climbing stairs yesterday and therefore we kept her for an additional day and today Joshua up and down the halls independently with her walker and is very comfortable. Her capillary glucose levels are under better control today. Her hemoglobin today is 8.3. Was 8.9 yesterday and appears to have stabilized. She did receive a transfusion of iron last night and is getting 1 today as well she has had stable vital signs and she denies feeling lightheaded now and is eager to be discharged home with her and her daughter was present in the room as well. Iron studies did show that she was low in iron. Because her iron deficiency might be due to gastric or duodenal ulcer bleeding potentially, I think we should discontinue the Celebrex as the risk of GI bleeding may be higher than the risk of heterotopic ossification in a female her age. She has been alert and oriented. She has very little discomfort in the hip now and had very little discomfort with ambulation weight-bearing as tolerated with a walker. Her discharge medications will include Eliquis 2.5 mg twice daily for 5 weeks total for DVT for pain we are using 650 Tylenol every 6 hours scheduled and p.r.n. oxycodone 2.5 mg we will use shira Colace and MiraLax for constipation prophylaxis. She will not take the Aleve. I reviewed with the family the proper way to apply a folded 4 x 4 sing. Her wound looks perfect. She has no significant swelling in the leg except for trace edema both ankles which is her normal. She does tend to get swelling feet and ankles at times off and on and it will be important for her to avoid resting in the chair would like her to be up walking every hour while awake but it would be best for her to rest supine with her leg elevated a little bit ideally above her heart in better on the couch. Her is able bodied and he is going to help her provide care. Time Spent with Patient Time attestation: Total time spent providing and/or coordinating discharge services: DS: Data Data Completed and Pending Labs on day of discharge: Labs from last 24 hours 01/25/24 01/25/24 01/24/24 08:14 05:42 20:58 WBC 9.5 RBC 2.67 L Hgb 8.3 L Hct 25.4 L MCV 95.1 MCH 31.1 MCHC 32.7 RDW 13.3 Plt Count 197 MPV 10.1 POC Capillary Glucose 174 H 134 H Iron TIBC % Saturation Vitamin B12 Folate 01/24/24 01/24/24 01/24/24 16:30 14:50 11:24 WBC RBC Hgb 8.5 L Hct 25.9 L MCV MCH MCHC RDW Plt Count MPV POC Capillary Glucose 255 H 210 H Iron TIBC % Saturation Vitamin B12 Folate 01/24/24 06:13 WBC RBC Hgb Hct MCV MCH MCHC RDW Plt Count MPV POC Capillary Glucose Iron 44 TIBC 258 L % Saturation 17 L Vitamin B12 950.0 H Folate 18.2 Discharge Plan Discharge Attending physician on discharge: Viral Lopez Consulting providers: Greer Mott Discharging Clinician: Viral Lopez Patient Disposition: Home, Self-Care Activity: may shower Diet: diabetic Wound Care Instructions: follow printed instructions Discharge Instructions: VIRAL LOPEZ M.D [facility] [address] [place] [address] [address] [place] [address] POST-OPERATIVE DISCHARGE INSTRUCTIONS ANTERIOR TOTAL HIP ARTHROPLASTY 1. Move toes/feet up and down every hour while awake. 2. Be up walking every hour while awake. 3. Use walker elementary school teacher if instructed to use walker elementary school teacher. Use the walker full-time for 4 weeks. When you are allowed to use the cane, use the cane in the oppos
--- NOTE | 2024-01-25 11:56 | PM.IMPN ---
Progress Note: A&P Assessment and Plan (1) Osteoarthritis of right hip: Qualifiers: Osteoarthritis type: primary Qualified Code(s): M16.11 - Unilateral primary osteoarthritis, right hip Code(s): M16.11 - Unilateral primary osteoarthritis, right hip Status: Acute Assessment and Plan: management per primary service, PT/OT on board. (2) Chronic kidney disease, stage 3a: Code(s): N18.31 - Chronic kidney disease, stage 3a Status: Acute Assessment and Plan: GFR greater than 60 creatinine 0.7 on morning labs, stop IV hydration (3) Type 2 diabetes mellitus without complication, without long-term current use of insulin: Code(s): E11.9 - Type 2 diabetes mellitus without complications Status: Acute Assessment and Plan: Blood sugar 131-255, continue fingerstick glucose and sliding scale insulin 01/24: stable (4) Iron deficiency anemia: Code(s): D50.9 - Iron deficiency anemia, unspecified Status: Acute Assessment and Plan: Postoperative hemoglobin drop with known blood loss during surgery. Patient does not require transfusion at this time. Will continue to monitor CBC again tomorrow. Initiate IV iron as her% saturation is low and she is not compliant with her home iron supplements. B12 and folate are okay. Patient takes supplemental B12 daily. 01/24: IV iron yesterday and today. Instructed to take iron oral twice a day with vitamin C. Plan FEN: diabetic diet GI prophylaxis: DVT prophylaxis: Eliquis per Orthopedics Lines: Peripheral IV Code Status: Full code Dispo: DC per Ortho team Time Spent With Patient Time with patient: 15 - 25 minutes Subjective Date/time seen: 01/25/24 09:56 Interval history: Patient feeling better today. She has received IV yesterday and today. Instructed her to take iron twice daily upon discharge with some vitamin-C. Orthopedic surgery is discharging patient with home health today. Review of Systems Review of Systems: All systems reviewed & are unremarkable except as noted in HPI and below Exam Const: General: comfortable and no acute distress Eyes: Pupils: Equal, round and reactive pupils present Neck: Neck: supple Resp: Effort & Inspection: normal respiratory effort Auscultation: clear to auscultation bilaterally Cardio: Rate: regular rate Rhythm: regular rhythm Neuro: Cranial nerves: Yes Equal, round and reactive pupils present Extrem: General: no edema Other: Lower extremities bilaterally neurovascularly intact Surgical site dressing clean dry intact Objective Data Vital Signs Vital Signs: Vital Signs - 24 hr 01/24/24 13:10 01/24/24 22:08 01/25/24 06:00 Temperature 36.6 C 36.7 C 36.3 C L Pulse Rate 96 82 105 H Respiratory Rate 20 18 18 Blood Pressure 114/48 L 115/54 L 125/51 L Pulse Oximetry 100 100 97 Oxygen Delivery 01/25/24 08:00 Temperature Pulse Rate Respiratory Rate Blood Pressure Pulse Oximetry Oxygen Delivery Room Air Intake/Output Intake/Output: Intake & Output 01/22/24 01/23/24 01/24/24 01/25/24 23:59 23:59 23:59 23:59 Intake Total 1600 2752 240 Output Total 20 2660 Balance 1580 92 240 Meds/Results Medications: Active Medications Generic Name Dose Route Start Last Admin Trade Name Freq PRN Reason Stop Dose Admin Acetaminophen 1,000 mg 01/23/24 12:00 01/25/24 05:45 Acetaminophen 500 Mg Tablet PO 1,000 mg Q6H KAMILLA Administration Apixaban 2.5 mg 01/24/24 09:00 01/25/24 08:34 Apixaban 2.5 Mg Tablet PO 2.5 mg Q12HR KAMILLA Administration Atorvastatin Calcium 10 mg 01/23/24 21:00 01/24/24 21:20 Atorvastatin 10 Mg Tablet PO 10 mg HS KAMILLA Administration Cefdinir 300 mg 01/24/24 14:00 01/25/24 08:34 Cefdinir 300 Mg Capsule PO 300 mg Q12HR KAMILLA Administration Celecoxib 100 mg 01/24/24 08:00 01/25/24 08:34 Celecoxib 100 Mg Capsule PO 100 mg DAILY@0800 [facility] Administrati
[2024-01-25 12:15] LABS: Glucose Point of Care 153 mg/dl (65-105)
== END 2024-01-25 13:40 | disposition home or self-care (01) | DRG 470 ==
LOC: ANHSURGERY 12:50 → ANH3MEDSUR 12:50
PROVIDERS: Nurse Practitioner; Admitting Provider Orthopaedic Surgery; PCP Internal Medicine; Visit Provider Orthopaedic Surgery
PROC: 0SR904A Replacement of Right Hip Joint with Ceramic on Polyethylene Synthetic Substitute, Uncemented, Open Approach (ICD-10-PCS; CPT 27130; principal; 2024-01-23 07:30)
DX: M16.11 Unilateral primary osteoarthritis, right hip (principal); D62 Acute posthemorrhagic anemia; E11.22 Type 2 diabetes mellitus with diabetic chronic kidney disease; N18.31 Chronic kidney disease, stage 3a; M19.90 Unspecified osteoarthritis, unspecified site; E78.5 Hyperlipidemia, unspecified; D50.9 Iron deficiency anemia, unspecified; Z91.198 Patient's noncompliance with other medical treatment and regimen for other reason; Z96.652 Presence of left artificial knee joint; Z90.49 Acquired absence of other specified parts of digestive tract; Z90.710 Acquired absence of both cervix and uterus; Z86.718 Personal history of other venous thrombosis and embolism
CPT/HCPCS: 36415; 73501; 80048; 82607; 82746; 82948; 83540; 83550; 85014; 85018; 85025; 85027; 97110; 97116; 97161; 97165; 97530; 97535; 99199; A9270; C1776; J0171; J0690; J1100; J1170; J1756; J1815; J1885; J2270; J2405; J2704; J2795; J3010; J3370; J7030; J7040; J7050; J7120